=== PATIENT | female | born 1990 | race African-American/Black ===

== ENCOUNTER 2018-02-20 09:13 | Inpatient (IN) | payer OTHER ==
[2018-02-20 10:20] LABS: Amnisure Internal Control QC ACCEPTABLE (ACCEPTABLE); Amnisure Test INVALID (No Rupture)
[2018-02-20 10:31] VITALS: BMI 27.4
[2018-02-20 10:33] LABS: #Basophils 0.1 thou/uL (0.0-0.2); #Eosinphils 0.2 thou/uL (0.0-0.7); #Lymphocytes 2.6 thou/uL (1.20-3.40); #Monocytes 0.7 thou/uL (0.11-0.59); #Neutrophils 9.3 thou/uL (1.40-6.50); %Basophils 0.6 % (0.0-1.0); %Eosinophils 1.4 % (0.0-10.0); %Lymphocytes 20.2 % (21.0-51.0); %Monocytes 5.6 % (0.0-10.0); %Neutrophils 72.2 % (42.0-75.0); Hemoglobin 10.2 g/dL (12.0-16.0); Mean Corpuscular HGB CONC 34.2 g/dL (32.0-36.0); Mean Corpuscular Hemoglobin 35.4 pg (27.0-31.0); Mean Platelet Volume 7.1 fL (7.4-10.4); Platelet Count 146 thou/uL (130-400); RBC Distribution Width 11.6 % (11.5-14.5); Red Blood Cell (RBC) Count 2.88 mill/uL (4.20-5.40); White Blood Cell (WBC) Count 12.9 thou/uL (4.8-10.8)
[2018-02-20 10:59] LABS: Amphetamine Not Detected (NotDetected); Barbiturates Screen Not Detected (NotDetected); Benzodiazepine Screen Not Detected (NotDetected); Cocaine Metabolite Screen Not Detected (NotDetected); Medtox Control Line Valid? VALID (VALID); Medtox Reader # READER 1; Methadone Not Detected (NotDetected); Methamphetamine Not Detected (NotDetected); Opiate Screen Not Detected (NotDetected); Oxycodone Screen Not Detected (NotDetected); Phencyclidine (PCP) Not Detected (NotDetected); THC/Cannabinoid Screen Not Detected (NotDetected); Tricyclic Screen Not Detected (NotDetected)
[2018-02-20] MEDS: Lactated Ringer's 1,000 ML IV SCH (11:00)
[2018-02-20 11:10] LABS: HBSAg Index 0.22 S/CO (0-0.99); HIV (1/2) Antibody/Antigen Non-Reactive (NonReactive); HIV 1/2 INDEX 0.08 S/CO (<1.00); Hep B Surf Ag Non-Reactive S/CO (NonReactive)
[2018-02-20 11:11] LABS: Syphilis Antibody Index 1.45 S/CO (<1.00 Non-Reactive)
[2018-02-20] MEDS ORDERED: Betamet Acet/Betamet Na Ph 30 MG/5 ML VIAL ONE (11:19)
[2018-02-20] MEDS ORDERED: Lactated Ringer's 1,000 ML IV SCH (11:37)
[2018-02-20] MEDS ORDERED: Butorphanol Tartrate 1 MG/ML VIAL SLOW IVP PRN (11:37)
[2018-02-20] MEDS ORDERED: Promethazine HCl 25 MG/ML VIAL IM PRN (11:37)
[2018-02-20] MEDS ORDERED: Bicitra 30 ML UDCUP PO SCH (11:37)
[2018-02-20] MEDS ORDERED: Ondansetron HCl/PF 4 MG/2 ML Vial IVP PRN (11:37)
[2018-02-20] MEDS ORDERED: Magnesium Sulfate 4 GM in Sodium Chloride 0.9% 250 ML 250 ML IVPB SCH (11:45)
--- NOTE | 2018-02-20 11:54 | HP ---
DATE OF SERVICE: 02/20/2018 TIME OF SERVICE: 11:15 HISTORY OF PRESENT ILLNESS: The patient is a 27-year-old 5, para 2, AB 2 who presents at 29 weeks with a stated EDC of 03/07/2018 who presents complaining of a gush of fluid consistent with rupture of membranes at approximately 0600 this morning. Patient was transferred via ambulance from the [place] [facility]. Upon arrival to the Labor and Delivery, she has noted some vaginal bleeding and increasing lower abdominal pain consistent with contractions. She reports an active fetus. 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 Ultrasound from that visit was performed at [facility], but it is not available. Her antepartum record was faxed from [place]. She is O positive, antibody negative, Pap negative, rubella immune, VDRL nonreactive , hepatitis B, GC chlamydia negative. 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 PAST MEDICAL HISTORY: None. PAST SURGICAL HISTORY: only. ALLERGIES: Denies. MEDICATION: vitamins. SOCIAL HISTORY: Denies tobacco, alcohol, IV drug use. FAMILY HISTORY: Noncontributory. REVIEW OF SYSTEMS: Noncontributory. PHYSICAL EXAMINATION: GENERAL: Black female resting comfortably, normotensive. VITAL SIGNS: Blood pressure 118/72, pulse 85, respirations 18, temperature 98.6. HEENT: Within normal limits. LUNGS: Clear to auscultation bilaterally. HEART: Regular rate and rhythm. ABDOMEN: Soft with a fundal height of 29-30 cm. FHTs are 140s. PELVIC: Vulva is without lesions. Vagina, large blood clots noted. Sterile spec exam revealed large clot. Cervix cannot be visualized. Sterile glove was utilized and cervix was noted to be one long and high. EXTREMITIES: Without clubbing, cyanosis or edema. IMAGING DATA: Ultrasound results pending; however, preliminary report is estimated weight of approximately 1450 grams consistent with stated EGA. Amniotic fluid index of 3 consistent with rupture of membranes. Anterior placenta, posterior placental membrane slightly from the wall with a possible clot noted in breech presentation. LABORATORY STUDIES: Hematocrit is 29.8%, white count is 12.9, platelet count is within normal limits. Urine drug screen negative. IMPRESSION: Premature rupture of membranes with possible early evolving abruption at 29 weeks' gestation with breech presentation and previous . PLAN: 1. betamethasone. 2. Ampicillin and Zithromax. 3. Anesthesia consult. 4. Neonatology consult. 5. Anticipate likely need for repeat section which will be performed for any signs of increasing abruption. 6. Mg SO4 for neuroprotection MTDD
[2018-02-20] MEDS: Magnesium Sulfate 20 gm/500 ml 20 GM/500 ML BAG IVPB SCH ×2 (12:07→19:27)
--- NOTE | 2018-02-20 12:35 | ULT ---
COMPLETE OBSTETRICAL ULTRASOUND: INDICATION: A 28-week gestation with concern for spontaneous rupture of membranes. TECHNIQUE: Guzman scale and color Doppler images were obtained. FINDINGS: There is a single live intrauterine gestation in breech presentation with cardiac activity noted at 1 44 b.p.m. The placenta is anterior in location without evidence of previa. There is prominent oligohydramnios with an JOHN measured at 3.9 cm. This is well below the 2.5th perc entile based on gestational age. There is also fluid distention of a dilated internal cervical os. The internal cervical os measured 13 mm in its greatest dimension. The cervix measured 4.5 cm in length. There is no venancio evidence of placental abruption. There is redundancy of amniotic membrane seen carlos a ng the posterior aspect of the lower uterine segment adjacent to the cervical os suspicious for free- floating membranes. The survey appeared within normal limits. There is limited visualization of the spine due to t he presence of oligohydramnios. Nose and lips were also limited. The biparietal diameter measured 7.16 cm giving an estimated gestational age of 28 weeks and 5 days ( 25th percentile). The head circumference measured 27.3 cm giving an estimated gestational age of 29 weeks and 6 days (3 5th percentile). Abdominal circumference measured 25.84 cm giving an estimated gestational age of 30 weeks and 0 days (70th percentile). The femoral length measured 5.72 cm giving an estimated gestational age of 30 weeks and 0 days (60th percentile). The estimated weight was 1471 gm +/- 218 gm (3 pounds 4 ounces +/- 8 ounces) (65th percentile). IMPRESSION: 1. Findings supporting the clinical diagnosis of premature rupture of membranes with oligohydramnios and dilatation of the internal cervical os to 13 mm with fluid present within the internal cervical os. There is some redundancy of the amniotic membranes along the posterior inferior aspect of the lo wer uterine segment. Findings were called to Dr. Mcallister at 11:10 a.m. on 02/20/18. 2. Estimated gestational age by ultrasound of 29 weeks and 6 days with estimated due date of 05/02/18 . 3. The visualized survey appeared within normal limits. There is limited visualization of the nose and lips and spine. CODE CR POS: [facility]
[2018-02-20] MEDS: Betamet Acet/Betamet Na Ph 30 MG/5 ML VIAL IM SCH (13:06)
[2018-02-20 13:43] VITALS: BP 107/57
[2018-02-20] MEDS: Ampicillin 2 GM in Sodium Chloride 0.9% 100 ML IVPB SCH ×2 (14:02→20:04)
[2018-02-20] MEDS: Azithromycin 500 MG in Sodium Chloride 0.9% 250 ML 250 ML IVPB SCH (14:38)
--- NOTE | 2018-02-20 15:51 | PDOC.APC ---
Antepartum Consult LOLA KNUTSON is a 27 year old female at [29 1/7 ] gestational weeks. Patient presented with concern for SROM. Found to have vaginal bleeding with likely rupture, given antibiotics, steroids and magnesium. Mother has had limited care with Dr. Singer (states appointment at 14 and 25 weeks). I was asked by Dr Mcallister to speak with the patient regarding anticipated course for a baby born at 29 weeks. I spoke with the patient and family. I outlined that the timing and mode of delivery is a decision that will be made by the OB service. Once the patient is taken for delivery, the resuscitation team will be present. The initial focus will be on respiratory stabilization and may include CPAP or intubation with surfactant administration depending on the needs of the patient. I discussed that the patient will need to be admitted to the NICU in an isolette due to temperature instability associated with prematurity. We will then obtain IV access (peripheral or umbilical depending on the size of the patient) as babies are at risk for hypoglycemia and feeding intolerance. We discussed that babies born are at higher risk for feeding intolerance (specifically NEC), infection and jaundice. I discussed that breastmilk is the best nutrition for babies and she is strongly encouraged to pump after delivery. I explained that babies born at 29 weeks are not able to feed by mouth and will need a feeding tube until ~33-34 weeks. We discussed the need for IVH screening and ROP screening. I explained that the duration of hospital stay will be determined on the clinical course of the baby. I outlined the milestones that needed to be achieved to ensure safe discharge home. They had the opportunity to ask questions. I encouraged them to contact our service again if additional questions arise. Labs: Ante Labs Blood Type O POSITIVE 02/20/18 11:37 Hep Bs Antigen Non-Reactive S/CO (NonReactive) 02/20/18 10:23 HIV negative Syphilis testing pending
--- NOTE | 2018-02-20 21:39 | PRG ---
DATE OF SERVICE: 02/20/2018 TIME OF SERVICE: 2119 SUBJECTIVE: Patient is resting comfortably. Vital signs are stable. She is afebrile. Urine output has been 200 to 300 mL per hour. FHTs are 130s to 140s. There are occasional mild variable decels with contractions, however, not all contractions lead to decelerations. The patient is having contra ctions about every 15-20 minutes. OBJECTIVE: Her abdomen is soft and nontender. She is resting well. DTRs are 2+. Vulva is without lesions. There is a small amount of blood on her pad, but nowhere near as much as was noted earlier in the day when she was having increased contractions. IMPRESSION: 29-week breech presentation, previous with rupture of membranes and po ssible small stable placental abruption. KB stain is negative. PLAN: Continue antepartum corticosteroids, antibiotics for her -rupture of membranes, and mag nesium sulfate for neuro prophylaxis. If labor develops, or other maternal or indication devel ops, we will proceed with repeat section, likely low vertical incision secondary to early ge station and presentation. We will check hemogram and magnesium level in a.m.
[2018-02-21 00:10] LABS: Syphilis Antibody INDETERMINATE (Nonreactive); Syphilis Titer Non-Reactive (Negative)
[2018-02-21] MEDS: Ampicillin 2 GM in Sodium Chloride 0.9% 100 ML IVPB SCH ×4 (02:10→20:44)
[2018-02-21] MEDS: Magnesium Sulfate 20 gm/500 ml 20 GM/500 ML BAG IVPB SCH ×2 (05:44→15:40)
[2018-02-21 06:12] LABS: #Eosinphils 0.1 thou/uL (0.0-0.7); #Monocytes 1.1 thou/uL (0.11-0.59); #Neutrophils 16.1 thou/uL (1.40-6.50); %Basophils 0.2 % (0.0-1.0); %Eosinophils 0.3 % (0.0-10.0); %Lymphocytes 10.4 % (21.0-51.0); %Monocytes 5.8 % (0.0-10.0); %Neutrophils 83.4 % (42.0-75.0); Hemoglobin 10.4 g/dL (12.0-16.0); Mean Corpuscular HGB CONC 34.6 g/dL (32.0-36.0); Mean Corpuscular Hemoglobin 35.4 pg (27.0-31.0); Mean Platelet Volume 7.3 fL (7.4-10.4); Platelet Count 157 thou/uL (130-400); RBC Distribution Width 11.5 % (11.5-14.5); Red Blood Cell (RBC) Count 2.93 mill/uL (4.20-5.40); White Blood Cell (WBC) Count 19.3 thou/uL (4.8-10.8)
--- NOTE | 2018-02-21 06:19 | PDOC.LDPN ---
Labor & Delivery Progress Note - Subjective Subjective: comfortable, other (sleeps through most cxns, does feel them occassionally) - Objective Vital signs reviewed and normal: yes General: NAD, resting Uterine fundus: non tender FHT: category 2 (minimal variability), variable decelerations, late decelerations -: # P-PROM - Ampicillin, azithromycin - betamethasone at 1130 on 02/20 - magnesium for neuroprotection - throwing late decels throughout the night, variability absent as of now, has been moderate throughout the night - contractions are irregular - [place] has been consulted - will try to give baby 24-48 hours after 1st dose of celestone, monitor closely # Early placental abruption - patient reports minimal to no bleeding overnight - pain is controlled # Anterior placenta - will be mindful during - likely low vertical incision <Tristen Baker - Last Filed: 02/21/18 06:18> - Objective FHT: late decelerations (- patient has variable decels, with no perceivable contractions, that have a late appearance with 10-15 bpm drop, around 2x an hour , while the rest of the fhr tracing has no decels and decreased variability consistent with early gest age and Mgso4 administration. ) Plan: continue plan of care (labs pending this am. good uop noted so mg toxicity unlikely. continue goal of 48hr of steroids and neuroprotection. delivery if decels become more repetetive and frequent or other sign of indicaton for delivery develop ) <Aroldo Mcallister - Last Filed: 02/21/18 06:47>
[2018-02-21] MEDS: Lactated Ringer's 1,000 ML IV SCH ×2 (09:31→23:42)
[2018-02-21] MEDS: Betamet Acet/Betamet Na Ph 30 MG/5 ML VIAL IM SCH (11:53)
[2018-02-21] MEDS: Azithromycin 500 MG in Sodium Chloride 0.9% 250 ML 250 ML IVPB SCH (15:40)
--- NOTE | 2018-02-21 22:11 | PDOC.LDPN ---
Labor & Delivery Progress Note - Subjective Subjective: other (Called out with a small gush of fluid and pressure) - Objective Vital signs reviewed and normal: yes General: NAD, resting Uterine fundus: non tender Dilation: 0 Effacement: 0% Station: -3 FHT: category 1 (130s, mod variability) [place] contractions every: none -: SVE unchanged. Blood tinged fluid noted on pad but no e/o active bleeding. Continue current management.
[2018-02-22] MEDS: Magnesium Sulfate 20 gm/500 ml 20 GM/500 ML BAG IVPB SCH (01:46)
[2018-02-22] MEDS: Ampicillin 2 GM in Sodium Chloride 0.9% 100 ML IVPB SCH ×5 (02:26→23:05)
--- NOTE | 2018-02-22 07:51 | PDOC.LDPN ---
Labor & Delivery Progress Note - Subjective Subjective: other (Reports increased contractions and back pain over the last few hours. No heavy bleeding. Continues to leak fluid.) - Objective Vital signs reviewed and normal: yes General: NAD, resting Uterine fundus: palpable contractions FHT: category 2 (120s, min variability, occasional variable decels) [place] contractions every: not visualized -: Patient will be 24 hours after second dose of steroids this afternoon. Continue mag, abx for now. No significant change in monitoring. Will discuss with Dr. Gunn who will be taking over this morning.
[2018-02-22] MEDS: Azithromycin 500 MG in Sodium Chloride 0.9% 250 ML 250 ML IVPB SCH (12:30)
[2018-02-22] MEDS: Lactated Ringer's 1,000 ML IV SCH (16:50)
[2018-02-22 20:48] VITALS: TEMP 98.5
[2018-02-23] MEDS: Ampicillin 2 GM in Sodium Chloride 0.9% 100 ML IVPB SCH (05:06)
--- NOTE | 2018-02-23 08:37 | PRG ---
DATE OF SERVICE: 02/23/2018 HISTORY OF PRESENT ILLNESS: The patient is hospital day #3 at 29 weeks gestation and 4 days, admitte d for premature rupture of membranes. Her 48 hours of IV antibiotics will be up this evening at 1700 hours at which time the patient will be started on amoxicillin and will continue azithromyci n. She is status post Celestone. The patient this morning reports that she is doing well. She is t olerating a diet, has minimal to no pain, no fever and scant bleeding. VITAL SIGNS: Vital signs are within normal limits. She is afebrile. ABDOMEN: Soft and nontender, gravid. EXTREMITIES: Nontender, nonedematous. ASSESSMENT AND PLAN: The patient is hospital day #3 status post admission at 29 weeks for pr emature rupture of membranes. The patient has no evidence of labor or abruption or infection at this time. We will continue p.o. antibiotics this evening and will continue inhouse management. The pat ient is currently breech and has a history of prior , delivery would be by .
[2018-02-23] MEDS ORDERED: Azithromycin 250 MG TAB PO SCH (09:00)
[2018-02-23] MEDS: Lactated Ringer's 1,000 ML IV SCH (10:40)
--- NOTE | 2018-02-23 10:41 | PRG ---
DATE OF SERVICE: 02/23/2018 TIME OF EVALUATION: Roughly 10:10 to 10:20 LOCATION: Labor and Delivery in R #9. DATE OF ADMISSION: The patient was admitted on 02/20/2018. HOSPITAL COURSE: In brief, I assumed care of Ms. Hawkins this morning at 0800. By chart and phys ician handoff review, this patient is a 27-year-old A2 with an estimated date of confinement of 03/07/2018. She is at 29 weeks and 4 days. She was admitted with a complaint of leakage of fluid/P PROM. She was started on ampicillin and Zithromax for PPROM protocol. Ultrasound revealed the baby to be breech, and an JOHN of 3. She was Rh positive, RPR and hepatitis B surface antigen negative. S he received betamethasone and has completed that course. She has also received IV magnesium sulfate for neuroprotection and that is also currently off. The patient has had late care, rossy jara at 24 weeks' gestation. I evaluated the patient this morning, and review of the prior ultrasound p erformed on 02/20/2018 reveals an estimated weight of 1471 grams, cervical length by that asses sment was 4.5 cm. PROCEDURE: I explained to the patient a sterile speculum examination and its purpose. To assess any cervical dilation grossly, without the use of digital palpation, I recommended a sterile speculum ex amination. Sterile speculum examination was performed without gross contamination and the cervix is visually closed. There is clear fluid noted per os. There is no evidence of venancio vaginal bleeding. I discussed with the patient the possibility of maternal transport for benefit for neonata l availability as our NICU is currently full status. I also called the NICU team/physician who agree d to that maternal transport for availability is recommended by them. I discussed this with the patient, the patient agrees. PLAN: Our plan will include notification of the Transport Center for maternal transport to the [facility] facility. She is to continue her ampicillin and Zithromax which is currently being given orally. 7 days of antibiotics for PPROM therapy will be completed next Tuesday.
[2018-02-23] MEDS ORDERED: AMOXicillin 250 MG CAP PO SCH ×2 (11:00→21:00)
--- NOTE | 2018-02-23 11:11 | PDOC.EVN ---
Event Note - Event Note Event Note: @ 1044: Report given to [facility] accepting facility (Dr Fernandes). I have cleared the patient for ground transport as SSE by me with CX visually closed on exam as previously dictated. Meds will continue as oral amoxcillin and ZMax for total of 7 days (end on Tuesday next week). Ok to heplock IV. Transport in process. Cleared by NICU team...NICU closed here
== END 2018-02-23 12:30 | disposition short-term general hospital (02) | DRG 782 ==
LOC: L&D/OP 09:13 → L&D 13:16
PROVIDERS: ADMIT Family Medicine; ATTEND Obstetrics & Gynecology
PROC: 4A1HXCZ Monitoring of Products of Conception, Cardiac Rate, External Approach (ICD-10-PCS; principal; 2018-02-20)
PROC: 4A1HXFZ Monitoring of Products of Conception, Cardiac Rhythm, External Approach (ICD-10-PCS; 2018-02-20)
DX: O42.913 Preterm premature rupture of membranes, unspecified as to length of time between rupture and onset of labor, third trimester (principal); Z3A.29 29 weeks gestation of pregnancy; O32.1XX0 Maternal care for breech presentation, not applicable or unspecified; O34.219 Maternal care for unspecified type scar from previous cesarean delivery
CPT/HCPCS: 36415; 51701; 51702; 76805; 80306; 83735; 84112; 85025; 85460; 86593; 86762; 86780; 86850; 86900; 86901; 87340; 87389; 99285; A4353; J0290; J0456; J0702; J3475; J7050